=== PATIENT | male | born 1985 | race American Indian/Alaskan Native ===

== ENCOUNTER 2019-01-25 12:21 | Emergency (ER) | payer OTHER ==
[2019-01-25 12:39] VITALS: BP 133/104
--- NOTE | 2019-01-25 12:39 | Emergency Department Report ---
Blank Doc - Documentation Documentation: 33 y o male presents with hx of migraines since 2008 states this episode x 2weeks goody powder and motrin has no relief no recent trauma, injuries ACC
[2019-01-25] MEDS ORDERED: TORADOL IM ONE (13:44)
[2019-01-25] MEDS ORDERED: ULTRAM PO ONE (13:44)
--- NOTE | 2019-01-25 14:33 | Emergency Department Report ---
ED Headache HPI - General Chief Complaint: Headache Stated Complaint: HEADACHE/BODY PAIN Time Seen by Provider: 01/25/19 12:28 - History of Present Illness Initial Comments: Patient is a 33-year-old Male who's had increased headaches for the last 2 weeks. These are often on and lasts anywhere from an hour to 3-4 hours. Patient denies blurred vision but does have some mild nausea and vomiting and vomited once today. He has some mild dizziness as well but states it is not a spinning sensation. He denies any sore throat and fevers chills cough cold congestion or neck stiffness. Patient states the pain does sometimes start in the left neck and radiating 8 of the back of the head and then started to throb in the left side of his head. Patient states this is typical of his headaches. Patient's been having headaches since 2008. Patient has associated photophobia Allergies/Adverse Reactions: Allergies No Known Allergies Allergy (Unverified 01/25/19 12:22) Home Medications: Ambulatory Orders Butalb/Acetamin/Caff 50-325-40 [Fioricet 50-325-40] 1 tab PO Q6HR PRN #10 tab 01/25/19 Ibuprofen [Motrin 800 MG tab] 800 mg PO Q8HR PRN #10 tablet 01/25/19 Ondansetron [Zofran Odt] 4 mg PO Q8HR #10 tab.rapdis 01/25/19 ED Review of Systems ROS: Stated complaint: HEADACHE/BODY PAIN Other details as noted in HPI Comment: All other systems reviewed and negative ED Past Medical Hx - Past Medical History Previous Medical History?: No - Surgical History Past Surgical History?: No - Social History Smoking Status: Former Smoker Substance Use Type: None - Medications Home Medications: Home Medications Medication Instructions Recorded Confirmed Last Taken Type Butalb/Acetamin/Caff 50-325-40 1 tab PO Q6HR PRN #10 tab 01/25/19 Unknown Rx [Fioricet 50-325-40] Ibuprofen [Motrin 800 MG tab] 800 mg PO Q8HR PRN #10 tablet 01/25/19 Unknown Rx Ondansetron [Zofran Odt] 4 mg PO Q8HR #10 tab.rapdis 01/25/19 Unknown Rx ED Physical Exam - General Limitations: No Limitations General appearance: alert, in no apparent distress - Head Head exam: Present: atraumatic, normocephalic - Eye Eye exam: Present: normal appearance, PERRL, EOMI - ENT ENT exam: Present: mucous membranes moist - Neck Neck exam: Present: normal inspection. Absent: tenderness, meningismus - Respiratory Respiratory exam: Present: normal lung sounds bilaterally. Absent: respiratory distress, wheezes, rales, rhonchi - Cardiovascular Cardiovascular Exam: Present: regular rate, normal rhythm. Absent: systolic murmur, diastolic murmur, rubs, gallop - GI/Abdominal GI/Abdominal exam: Present: soft, normal bowel sounds. Absent: distended, tenderness, guarding, rebound, rigid - Rectal Rectal exam: Present: deferred - Extremities Exam Extremities exam: Present: normal inspection - Back Exam Back exam: Present: normal inspection - Neurological Exam Neurological exam: Present: alert, oriented X3 - Psychiatric Psychiatric exam: Present: normal affect, normal mood - Skin Skin exam: Present: warm, dry, intact, normal color. Absent: rash ED Course Vital Signs 01/25/19 12:37 Temperature 98.2 F Pulse Rate 66 Respiratory 16 Rate Blood Pressure 133/104 O2 Sat by Pulse 99 Oximetry Critical care attestation.: If time is entered above; I have spent that time in minutes in the direct care of this critically ill patient, excluding procedure time. ED Disposition Clinical Impression: Migraine headache with aura Qualifiers: Status migrainosus presence: without status migrainosus Intractability: not int ractable Qualified Code(s): G43.109 - Migraine with aura, not intractable, without status migrainosus Disposition: - TO HOME OR SELFCARE Is pt being admited?: No Does the pt Need Aspirin: No Condition: Stable Instructions: Migraine Headache (ED) Referrals: ALENA SÁNCHEZ MD [Primary Care Provider] - 3-5 Days Time of Disposition: 14:32
== END 2019-01-25 14:47 | disposition home or self-care (01) ==
LOC: ED 12:21
DX: G43.109 Migraine with aura, not intractable, without status migrainosus (principal); Z87.891 Personal history of nicotine dependence
CPT/HCPCS: 96372; 99282; J1885